=== PATIENT | female | born 1950 | race Two or more races ===

== ENCOUNTER 2024-12-27 20:59 | Emergency (ER) | payer MEDICAID, SELFPAY ==
[2024-12-27 21:47] VITALS: BP 159/88; PULSE 83; RESP 20; TEMP 36.4; O2SAT 95
--- NOTE | 2024-12-27 21:50 | XR_ITS ---
Examination: CT abdomen and pelvis without contrast. Coronal 3-D reconstructions. Sagittal 2-D reconstructions. Date and time of exam: December 27, 2024, 11:05 p.m. INDICATIONS: Flank pain back pain today, history kidney stones CTDI: vol (mGy): 7.07 DLP: (mGycm): 355 Technique: Axial images of the abdomen have been obtained, 3 mm slice thickness Intravenous contrast material has not been administered. Low dose protocols were performed. One or more of the following dose reduction techniques were used; automated exposure control, adjustment of the mA and/or KV according to patient size, use of iterative reconstruction technique. 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
--- NOTE | 2024-12-27 21:50 | PD.EDRME ---
Rapid Medical Screening Exam RME Arrival date/time: 12/27/24 20:59 This is a case of 74-year-old female with history of kidney stone came in in the emergency room due to bilateral flank pain radiating to lower back for 2 days associated with nausea vomiting persistence of the symptoms this patient decided to start consulted in the emergency room Chief Complaint: Back Pain/Injury Vital signs: Vital Signs Temperature 97.6 F 12/27/24 21:47 Pulse Rate 83 12/27/24 21:47 Respiratory Rate 20 12/27/24 21:47 Blood Pressure 159/88 H 12/27/24 21:47 Pulse Oximetry (%) 95 12/27/24 21:47 Oxygen Delivery Method Room Air 12/27/24 21:47
[2024-12-27 22:23] LABS: Basophils # (Auto) 0.1 Thou/mm3 (0.0-0.2); Basophils % (Auto) 1 % (0-2.5); Eosinophils # (Auto) 0.5 Thou/mm3 (0.0-0.5); Eosinophils % (Auto) 5 % (0-10); Hematocrit 41.7 % (36.0-46.0); Hemoglobin 14.2 g/dL (12.0-16.0); Immature Granulocytes Auto 0.03 Thou/mm3 (0.00-0.00); Lymphocytes # (Auto) 3.2 Thou/mm3 (1.0-4.8); Lymphocytes % (Auto) 29 % (10-50); Mean Corpuscular HGB Conc 34.1 g/dl (31.0-37.0); Mean Corpuscular Hemoglobin 28.9 pg (25.0-35.0); Mean Corpuscular Volume 85 fL (80-100); Monocytes # (Auto) 0.9 Thou/mm3 (0.0-0.8); Monocytes % (Auto) 8 % (0-12); Neutrophils # (Auto) 6.2 Thou/mm3 (1.8-7.7); Neutrophils % (Auto) 56 % (37-80); Nucleated Red Blood Cell # 0.00 Thou/mm3 (0.00-0.00); Nucleated Red Blood Cell % 0 /100 WBC (0); Platelet Count 317 Thou/mm3 (140-440); RDW Standard Deviation 41.7 fL (36.4-46.3); Red Blood Count 4.91 Miln/mm3 (4.00-5.20); White Blood Count 11.0 Thou/mm3 (3.6-11.0)
[2024-12-27] MEDS: ACETAMINOPHEN 500 MG TABLET 1000 MG PO (22:24)
[2024-12-27 22:35] LABS: Collection Type, Urine Clean Catch; WBC,Urine 0 /hpf (0-5)
[2024-12-27 22:43] LABS: Alanine Aminotransferase 24 U/L (10-49); Albumin, Serum 4.2 gm/dL (3.4-4.8); Albumin/Globulin Ratio 1.4 (1.2-2.2); Alkaline Phosphatase 133 U/L (46-116); Anion Gap 11 (7-16); BUN/Creatinine Ratio 13 Ratio (12-20); Bilirubin,Total 0.4 mg/dL (0.3-1.2); Blood Urea Nitrogen 9 mg/dL (9-23); Calcium 9.3 mg/dL (8.3-10.6); Calcium (Corrected) 9.3 mg/dL (8.5-10.1); Carbon Dioxide 25.1 mMol/L (20.0-31.0); Chloride 104 mMol/L (98-107); Creatinine (Component) 0.7 mg/dL (0.6-1.3); Globulin 2.9 gm/dL (2.3-3.5); Glucose 117 mg/dL (74-106); Lipase 27 U/L (12-53); Osmolality,Calculated 279 (275-295); Potassium 3.8 mMol/L (3.4-5.1); Sodium 140 mMol/L (136-145); Total Protein 7.1 gm/dL (5.7-8.2); eGFR > 60 See Note
[2024-12-27 22:47] LABS: Bilirubin,Urine Negative (Negative); Blood,Urine Negative (Negative); Clarity,Urine Clear (Clear/Hazy); Color,Urine Colorless (Lt Yel-Yel); Glucose, Urine Negative (Negative); Ketones,Urine Negative (Negative); Leukocyte Esterase,Urine Negative (Negative); Nitrite,Urine Negative (Negative); PH,Urine 6.5 (5.0-7.0); Protein,Urine Negative (Neg - Trace); RBC,Urine < 1 /hpf (0-3); Specific Gravity,Urine 1.008 (1.001-1.035); Squamous Epithelial Cell,Urine < 1 /hpf (0-5); Urobilinogen,Urine Negative mg/dL (0.0-1.0)
[2024-12-27 23:37] VITALS: BP 130/88; PULSE 86; RESP 19; TEMP 36.4; O2SAT 96
[2024-12-27 23:50] LABS: Aspartate Amino Transferase 21 U/L (0-34)
--- NOTE | 2024-12-27 23:50 | PD.EDBACK ---
ED Back Injury Pain RME/HPI General Chief Complaint: Back Pain/Injury Stated Complaint: BACK PAIN X 1DAY Arrival date/time: 12/27/24 20:59 RME / HPI RME / HPI Narrative: 12/27/24 20:59 This is a case of 74-year-old female with history of kidney stone came in in the emergency room due to bilateral flank pain radiating to lower back for 2 days associated with nausea vomiting persistence of the symptoms this patient decided to start consulted in the emergency room ------- Dr. Sunshine?s Main ED Evaluation: 74yo female, history obtained by daughter due to language barrier, presenting with bilateral flank pain of chronic nature that escalated today. Patient has had worsening urinary frequency, but no dysuria or hematuria. No fever, chills, N/V/D. PMH includes ?kidney stones. PSH unremarkable. Social history unremarkable. NKDA. Related Data Previous Rx's ?Medication ?Instructions ?Recorded phenazopyridine 100 mg tablet 100 mg PO TID PRN pain #9 tabs 12/28/24 (Pyridium) Allergies Allergy/AdvReac Type Severity Reaction Status Date / Time No Known Allergies Allergy Verified 12/27/24 21:01 Review of Systems Review of Systems Systems Reviewed: All systems reviewed, normal except as documented Past Medical History Past Medical History CARDIAC: Negative Congestive Heart Failure RESPIRATORY: Negative Chronic Obstructive Pulmonary Disease (COPD) GASTROINTESTINAL: Positive Gastrointestinal Disorders and Gastroesophageal Reflux Disease GENITOURINARY: Negative Renal Disease ENDOCRINE: Negative Diabetes Mellitus Type 1 or Diabetes Mellitus Type 2 Social History SMOKING STATUS: Never smoker ED Exam Narrative Physical exam: GENERAL APPEARANCE: alert and oriented x 4, mildly anxious, complains of bilateral flank pain, well-developed, well-nourished, no acute distress VITALS: All vitals were reviewed and the pulse ox is 96% on room air, which is normal according to my interpretation. HEENT: Normocephalic, atraumatic; pupils equal, round, reactive to light; EOMI; mucous membranes pink, moist; oropharynx clear NECK: Supple LUNGS: CTABL; no wheezes, no rales, no rhonchi HEART: Regular rate, regular rhythm; normal S1, S2; no murmurs ABDOMEN: non distended; soft, mild suprapubic tenderness, no guarding BACK: 1+ bilateral CVA tenderness EXTREMITIES: atraumatic; no edema NEUROLOGIC: awake; alert and oriented x4; cranial nerves II-XII grossly intact; no focal sensory or motor deficits PSYCHIATRIC: mildly anxious mood and affect SKIN: warm, dry, normal color; no rashes Course Quality Measures none Orders Category Date Time Status CT abdomen pelvis wo con Stat Exams 12/27/24 21:50 Completed CBC Stat Lab 12/27/24 22:11 Completed Comprehensive Metabolic Panel Stat Lab 12/27/24 22:11 Completed Lipase Stat Lab 12/27/24 22:11 Completed Urinalysis Stat Lab 12/27/24 22:28 Completed Urine Culture Stat Lab 12/28/24 00:03 Ordered Acetaminophen Tab [Tylenol ES Tab] Med 12/27/24 22:18 Discontinued 1,000 mg PO X1 ONE Phenazopyridine HCl [Pyridium] Med 12/28/24 00:03 Discontinued 100 mg PO X1 ONE cefTRIAXone [Rocephin] 1,000 mg Med 12/28/24 00:04 Discontinued Lidocaine 1% 20 ml [Xylocaine 1% 20 ML] 2.1 ml IM X1 Vital Signs Vital signs: Vital Signs Temperature 97.6 F 12/27/24 21:47 Pulse Rate 83 12/27/24 21:47 Respiratory Rate 20 12/27/24 21:47 Blood Pressure 159/88 H 12/27/24 21:47 Pulse Oximetry (%) 95 12/27/24 21:47 Oxygen Delivery Method Room Air 12/27/24 21:47 Back Pain / Injury MDM Narrative MDM Narrative:: Scribe Attestation: 12/27/24 - Gertrude Pittman am scribing for and in the presence of Dr. Sunshine. 74yo female, history obtained by daughter due to language barrier, presenting with bilateral flank pain of chronic nature that escalated today. Patient has had worsening urinary frequency, but no dysuria or hematuria. Please see PE findings. Lab markers demonstrated normal CBC, normal chemistries, and unremarkable UA. CT abdomen pelvis was performed and demonstrated L>R hydronephrosis without calculi or obstructive mass. Radiologist suggests UTI, reflux, etc. Patient will be administered IM NSAID. Given high risk for infection, will empirically treat with IM Rocephin, treat symptomatically, and culture urine. Patient data External records reviewed:: [facility] previous records (Per chart review, patient has no previous ED visits or admissions to this facility.) Clinical information provided by:: patient Social determinants that could affect healthcare access:: none Patient has the following chronic illnesses:: none How is presenting disease/condition affected by chronic disease/condition?: no chronic disease Evaluation data The following diagnostics were reviewed and interpreted by me:: lab results and radiology exam(s) Lab and/or radiology exams considered but not ordered:: none Interpretation Summary: [facility] Report Signed Patient: ALEX MCGEE [facility]. Record#: [id number] Birthdate: 1950 Age/Sex: 74 / F Location: [facility] Attending Dr: Ordering Physician: Laura Gan Date of Service: 12/27/24 Procedure(s): CT abdomen pelvis wo con Accession Number(s): [id number] cc: Hiren Jamison MD; NO PRIMARY/FAMILY,PHYSICIAN; Laura Gan~ Examination: CT abdomen and pelvis without contrast. Coronal 3-D reconstructions. Sagittal 2-D reconstructions. Date and time of exam: December 27, 2024, 11:05 p.m. INDICATIONS: Flank pain back pain today, history kidney stones CTDI: vol (mGy): 7.07 DLP: (mGycm): 355 Technique: Axial images of the abdomen have been obtained, 3 mm slice thickness Intravenous contrast material has not been administered. Low dose protocols were performed. One or more of the following dose reduction techniques were used; automated exposure control, adjustment of the mA and/or KV according to patient size, use of iterative reconstruction technique. 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 Dictated By: Hiren Jamison MD Signed By: <Electronically signed by Hiren Jamison MD in [place]> 12/27/24 8215 Medications / Prescriptions Medications or Prescriptions considered but not ordered:: none Medication administrations:: Medication Administration History Discontinued Medications Acetaminophen (Acetaminophen 500 Mg Tablet) 1,000 mg PO X1 ONE Stop: 12/27/24 22:19 Last Admin: 12/27/24 22:24 Dose: 1,000 mg Documented By: BD Ceftriaxone Sodium 1,000 mg/ (Lidocaine HCl 2.1 ml) 0 mg IM X1 ONE Stop: 12/28/24 00:05 Phenazopyridine HCl (Phenazopyridine Hcl 100 Mg Tablet) 100 mg PO X1 ONE Stop: 12/28/24 00:04 see above Consultations Consultation(s) initiated? (list below): No Diagnosis Differential diagnosis back pain/injury: renal colic, pyelonephritis and other (cystitis, UTI) Most likely diagnosis given after review of the tests above:: see clinical impression below Admission Indicated Admission indicated?: not indicated Admission Request Was there a request for admission?: No Disposition Plan Disposition Plan: Discharge Discharge Attestation Discharge Attestation: The patient and all family members were given an opportunity to ask questions and understood the discharge instructions. Discharge instructions specifically effects, indications for sooner follow up or return to the emergency department, and the expected course of current diagnosis. Patient condition: Stable Discharge Plan Plan Patient Disposition: HOME (Self Care) Discharge Disposition comment: Stable Prescriptions/Referrals Prescriptions/Med Rec: New phenazopyridine [Pyridium] 100 mg tablet 100 mg PO TID PRN (Reason: pain) Qty: 9 0RF Referrals: No Primary/Family,Physician [Primary Care Provider] - In 1 week Problem List Clinical Impression: Hydronephrosis Patient/Caregiver Discharge Instructions Discharge Activity: activity as tolerated Diet Instructions: Force fluids Education Materials: Understanding Hydronephrosis Additional Instructions: Force fluids/medication as directed/follow-up with urologist via PMD within 1 to 2 weeks. Return for fevers vomiting or escalating abdominal/flank pain. Print Language: Yoruba Stand Alone Forms: Mickie Award Info., Patient Portal Info Letter
[2024-12-28] MEDS: PHENAZOPYRIDINE HCL 100 MG TABLET PO (00:19)
[2024-12-28] MEDS: cefTRIAXone 1,000 MG, LIDOCAINE 1% 20 ML 2.1 ML IM (00:20)
[2024-12-28 00:50] VITALS: BP 126/75; PULSE 85; RESP 17; TEMP 36.7; O2SAT 96
== END 2024-12-28 00:50 | disposition home or self-care (01) ==
PROVIDERS: Nurse Practitioner Family; Emergency Provider Emergency Medicine
DX: N13.6 Pyonephrosis (principal)
CPT/HCPCS: 36415; 74176; 80053; 81001; 83690; 85025; 87086; 96372; 99283; J0696; J3490; A9270

== ENCOUNTER 2025-03-07 12:54 | Emergency (ER) | payer MEDICAID, SELFPAY ==
[2025-03-07 14:11] VITALS: BP 121/80; PULSE 78; RESP 18; TEMP 36.7; O2SAT 93
--- NOTE | 2025-03-07 14:16 | PD.EDABDPN ---
ED Abdominal Pain RME/HPI General Chief Complaint: Abdominal Pain Stated complaint: SEVERE ABD PAIN; PT JUST WANTS PAIN MED Time seen by provider: 03/07/25 14:16 Arrival date/time: 03/07/25 12:54 RME / HPI RME / HPI narrative: See [facility] for Dr. Dupree's HPI documentation. Related Data Previous Rx's ?Medication ?Instructions ?Recorded hydrocodone 5 mg-acetaminophen 325 1 tab PO Q6H PRN pain #12 tabs 12/28/24 mg tablet phenazopyridine 100 mg tablet 100 mg PO TID PRN pain #9 tabs 12/28/24 (Pyridium) acetaminophen 300 mg-codeine 30 mg 2 tab PO Q8H PRN pain #20 tabs 03/07/25 tablet ondansetron 4 mg disintegrating 4 mg PO TID PRN nausea and 03/07/25 tablet vomiting 30 days #10 tabs Allergies Allergy/AdvReac Type Severity Reaction Status Date / Time No Known Allergies Allergy Verified 03/07/25 12:59 Review of Systems Review of Systems Systems Reviewed: All systems reviewed, normal except as documented Past Medical History Past Medical History CARDIAC: Negative Congestive Heart Failure RESPIRATORY: Negative Chronic Obstructive Pulmonary Disease (COPD) GASTROINTESTINAL: Positive Gastrointestinal Disorders and Gastroesophageal Reflux Disease GENITOURINARY: Negative Renal Disease ENDOCRINE: Negative Diabetes Mellitus Type 1 or Diabetes Mellitus Type 2 Social History SMOKING STATUS: Never smoker ED Exam Narrative Physical exam: See [facility] for Dr. Dupree's physical exam documentation. Course Quality Measures none Orders Category Date Time Status US gall bladder Stat Exams 03/07/25 14:21 Completed US pelvic complete Stat Exams 03/07/25 14:21 Completed Morphine* Inj Med 03/07/25 14:21 Discontinued 6 mg IM X1 ONE Vital Signs Vital signs: Vital Signs Temperature 98.0 F 03/07/25 14:11 Pulse Rate 78 03/07/25 14:11 Respiratory Rate 18 03/07/25 14:11 Blood Pressure 121/80 03/07/25 14:11 Pulse Oximetry (%) 93 L 03/07/25 14:11 Oxygen Delivery Method Room Air 03/07/25 14:11 Abdominal Pain [facility] Narrative [facility] Narrative:: This section includes all my notes and documentations, including HPI, PE, and ED course. Lul Dupree MD HPI: 74-year-old female here with abdominal pain, difficult to localize, and on and off nausea. Was here a couple months ago and full workup was negative. Eating normally. No other complaints. ROS: All negative except as documented in HPI. Physical Exam: General: Alert and oriented. No acute distress when remaining still. Eyes: Conjunctivae and lids clear. ENT: No nasal congestion. Neck: Supple. Heart: RRR. Lungs: No respiratory distress. Good air movement. No rhonchi, wheezing, rales. Abdomen: Soft and nontender. Normal bowel sounds. No distension. No rebound or guarding. Back: No CVA tenderness. Skin: Warm and dry. Neuro: Alert and oriented X 3. I reviewed all diagnostic test results: My review of the gallbladder US report is: NAD. My review of the pelvic US report is: NAD At this point, diagnoses include: Abdominal pain of unclear etiology Treatment here included: Morphine 6 mg IM (patient and family specifically requested Morphine IM) She felt better. Recommended more diagnostics, including CT scan and blood/urine tests. Patient requested leaving without. Discussed potential risks, including worsening and sudden . Patient understood the risks and is willing to take the risks. We couldn't change his mind. Recommended more outpatient workup. Based on my best medical judgment, made decision no further evaluation or treatment indicated at this time. Patient understands and agrees to the discharge instructions customized and printed, see below. Discharge Instructions from Dr. Dupree printed for you: 1. Based on abdominal ultrasound today and your abdominal CT scan in December of this year, you may have liver disease. 2. Since you declined complete diagnostic tests today, including blood tests, we weren't able to perform full evaluation. 3. Zofran for nausea/vomiting. 4. Tylenol with codeine for severe pain. 5. See a private doctor on 03/08/2025 for recheck To find the cause and treatment of your chronic abdominal pain, ask for help with more care and investigation not overloading the ER. Such as EGD or scoping the stomach, colonoscopy or scoping the colon, and referral to see slag production worker. 6. Seek immediate medical care with worsening or with any concerns. Lul Dupree MD Patient data External records reviewed:: [facility] previous records (Per chart review, patient was seen here on 12/27/24 for hydronephrosis.) Clinical information provided by:: patient Social determinants that could affect healthcare access:: none Patient has the following chronic illnesses:: GERD How is presenting disease/condition affected by chronic disease/condition?: uneffected by Evaluation data The following diagnostics were reviewed and interpreted by me:: lab results and radiology exam(s) Lab and/or radiology exams considered but not ordered:: none Interpretation Summary: I reviewed all diagnostic test results: My review of the gallbladder US report is: NAD. My review of the pelvic US report is: NAD Medications / Prescriptions Medications or Prescriptions considered but not ordered:: none Medication administrations:: Medication Administration History Discontinued Medications Morphine Sulfate (Morphine Sulf Inj 4 Mg/Ml Vial) 6 mg IM X1 ONE Stop: 03/07/25 14:22 Last Admin: 03/07/25 16:40 Dose: 6 mg Documented By: JUDY Treatment here included: Morphine 6 mg IM (patient and family specifically requested Morphine IM) Consultations Consultation(s) initiated? (list below): No Diagnosis Differential diagnosis abdominal pain: constipation, diverticulitis, gastroenteritis and other (cholelithiasis, GERD, Gastritis, PUD) Most likely diagnosis given after review of the tests above:: Abdominal pain with unclear etiology Admission Indicated Admission indicated?: not indicated Explain why admission is indicated or not indicated:: Recommended more diagnostics, including CT scan and blood/urine tests. Patient requested leaving without. Discussed potential risks, including worsening and sudden . Patient understood the risks and is willing to take the risks. We couldn't change his mind. Admission Request Was there a request for admission?: No Disposition Plan Disposition Plan: Discharge Discharge Attestation Discharge Attestation: The patient and all family members were given an opportunity to ask questions and understood the discharge instructions. Discharge instructions specifically effects, indications for sooner follow up or return to the emergency department, and the expected course of current diagnosis. Patient condition: Stable Discharge Plan Plan Patient Disposition: HOME (Self Care) Prescriptions/Referrals Prescriptions/Med Rec: New acetaminophen-codeine 300-30 mg tablet 2 tab PO Q8H MDD 6 PRN (Reason: pain) Qty: 20 0RF ondansetron 4 mg tablet,disintegrating 4 mg PO TID PRN (Reason: nausea and vomiting) 30 Days Qty: 10 0RF No Action phenazopyridine [Pyridium] 100 mg tablet 100 mg PO TID PRN (Reason: pain) Qty: 9 0RF hydrocodone-acetaminophen 5-325 mg tablet 1 tab PO Q6H MDD max 4 tabs per day PRN (Reason: pain) Qty: 12 0RF Referrals: Lisa Boo FNP ([email or web address]) [Primary Care Provider] - In 1 week Problem List Clinical Impression: Abdominal pain Patient/Caregiver Discharge Instructions Discharge Activity: activity as tolerated Education Materials: ED Abdominal Pain Unkn Cause Fem Additional Instructions: Discharge Instructions from Dr. Dupree printed for you: 1. Based on abdominal ultrasound today and your abdominal CT scan in December of this year, you may have liver disease. 2. Since you declined complete diagnostic tests today, including blood tests, we weren't able to perform full evaluation. 3. Zofran for nausea/vomiting. 4. Tylenol with codeine for severe pain. 5. See a private doctor on 03/08/2025 for recheck To find the cause and treatment of your chronic abdominal pain, ask for help with more care and investigation not overloading the ER. Such as EGD or scoping the stomach, colonoscopy or scoping the colon, and referral to see slag production worker. 6. Seek immediate medical care with worsening or with any concerns. Print Language: Irish Stand Alone Forms: Mickie Award Info., Patient Portal Info Letter
--- NOTE | 2025-03-07 14:21 | XR_ITS ---
Examination: Pelvic ultrasound, transabdominal, complete Technique: Transabdominal ultrasound of the pelvis performed using grayscale imaging Date and time of exam: March 07, 2025, 1433 hours INDICATIONS: Abdominal pain with nausea beginning 3 months ago. FINDINGS: Uterus 6.4 cm endometrial stripe 0.4 cm No uterine mass. Right ovary 2.6 cm arterial flow Left ovary obscured by bowel gas IMPRESSION: Limited study No uterine mass
--- NOTE | 2025-03-07 14:21 | XR_ITS ---
Examination: Abdomen sonogram, Limited Date and time of exam: March 07, 2025, 1444 hours INDICATIONS: Abdominal pain with nausea beginning 3 months ago. Technique: Real-time umanzor scale transabdominal sonographic images of the upper abdomen obtained. Findings: Normal gallbladder Normal common bile duct 0.4 cm Pancreatic head 2.1 cm Liver 14.0 cm lobular contour Normal hepatopetal portal venous flow Patent IVC IMPRESSION: Normal gallbladder Suspicious for primary hepatocellular disease
[2025-03-07] MEDS: MORPHINE SULF INJ 4 MG/ML VIAL 6 MG IM (16:40)
[2025-03-07 16:53] VITALS: BP 125/83; PULSE 82; RESP 18; TEMP 37; O2SAT 98
== END 2025-03-07 16:56 | disposition home or self-care (01) ==
PROVIDERS: Emergency Provider Emergency Medicine; PCP Nurse Practitioner Primary Care
DX: R10.9 Unspecified abdominal pain (principal); R11.2 Nausea with vomiting, unspecified
CPT/HCPCS: 76705; 76856; 96372; 99283; J2270